=== PATIENT | female | born 1995 | race African-American/Black ===

== ENCOUNTER 2017-02-26 20:37 | Emergency (ER) | payer BC, OTHER ==
[~2017-02-26] VITALS: Ht 172.7 cm; Wt 88.9 kg
[~2017-02-26 20:37] MED LIST: BENADRYL25 MG PO
[2017-02-26] MEDS ORDERED: BUTALB-APAP-CA1 EACH PO (21:47)
[2017-02-26] MEDS ORDERED: NAPROSYN500 MG PO (21:47)
== END 2017-02-26 22:10 | disposition home or self-care (01) ==
LOC: ER 20:37
DX: G44.209 Tension-type headache, unspecified, not intractable (principal)